=== PATIENT | male | born 1980 | race African-American/Black ===

== ENCOUNTER 2022-12-08 13:03 | Outpatient (CLI) | payer BC, SELFPAY ==
--- NOTE | ~2022-12-08 | XR_ITS ---
EXAMINATION: XR chest 2V 12/08/2022 13:59 INDICATION: History of lymphoma PROCEDURE: 2 view chest COMPARISON: No prior studies for comparison. FINDINGS: The lungs are clear. The cardiomediastinal silhouette is within normal limits. There are no pleural effusions. There is no pneumothorax suspected. IMPRESSION: 1: NO ACUTE CARDIOPULMONARY DISEASE. Reviewed, dictated and finalized at location B.
[2022-12-08 13:54] LABS: Hematocrit 44.2 % (42.0-52.0); Hemoglobin 14.5 g/dL (14.0-18.0); Mean Corpuscular HGB Conc 32.8 g/dl (32-36); Mean Corpuscular Hemoglobin 29.3 pg (26-34); Mean Corpuscular Volume 89.3 fl (80-100); Mean Platelet Volume 9.7 fl (7.4-10.4); Platelet Count Result 286 k/mm3 (150-375); Red Blood Count 4.95 M/mm3 (4.6-6.20); Red Cell Distribution Width 12.8 % (11.5-14.5); White Blood Count 4.4 K/mm3 (4.5-10.0)
[2022-12-08 14:11] LABS: Alanine Aminotransferase 49 U/L (6-50); Albumin Level 4.6 g/dL (3.5-5.1); Alkaline Phosphatase 87 U/L (38-126); Anion Gap 5 mmol/L (8-16); Aspartate Amino Transferase 35 U/L (17-59); Bilirubin,Total 0.7 mg/dL (0.2-1.3); Blood Urea Nitrogen 18 mg/dL (9-20); Calcium 9.6 mg/dL (8.4-10.2); Carbon Dioxide 31 mmol/L (22-30); Chloride 104 mmol/L (98-107); Cholesterol 216 mg/dL (0-200); Estimated Glomerular Filt Rate > 60; Glucose 87 mg/dL (65-110); HDL Direct 51 mg/dL; Potassium 4.4 mmol/L (3.4-5.0); Sodium 140 mmol/L (137-145); Triglycerides 73 mg/dL (<150)
[2022-12-08 14:12] LABS: Hemoglobin A1C 5.6 % (<5.7)
[2022-12-08 14:23] LABS: LDL Cholesterol Direct 140 mg/dL
[2022-12-08 14:32] LABS: Vitamin D 25 Hydroxy < 12.8 ng/mL
[2022-12-08 15:10] LABS: Microalbumin Urine Random 37.2 mg/L (0-16.7)
[2022-12-08 15:13] LABS: Creatinine Urine 287.6 mg/dL; MALB Creatinine Ratio 12.9 mg/g (0-30)
== END 2022-12-08 13:04 | disposition home or self-care (01) ==
PROVIDERS: Clinical Nurse Specialist; Visit Provider Emergency Medicine
DX: C81.90 Hodgkin lymphoma, unspecified, unspecified site (principal)
CPT/HCPCS: 71046; 80053; 80061; 80307; 82043; 82306; 83036; 84439; 84443; 85027

== ENCOUNTER 2023-07-11 14:35 | Outpatient (CLI) | payer OTHER, SELFPAY ==
[2023-07-11 14:49] LABS: Basophils Percent Auto 0.5 % (0.2-1.2); Eosinophils Absolute Auto 0.3 K/mm3 (0-0.3); Eosinophils Percent Auto 6.6 % (0-4.4); Hematocrit 45.1 % (42.0-52.0); Hemoglobin 14.8 g/dL (14.0-18.0); Immature Granulocyte Absolute 0.01 K/mm3 (0.00-0.031); Immature Granulocyte Percent A 0.2 % (0-0.5); Lymphocytes Absolute Auto 2.29 K/mm3 (0.9-3.2); Lymphocytes Percent Auto 52.2 % (18.3-44.2); Mean Corpuscular HGB Conc 32.8 g/dl (32-36); Mean Corpuscular Hemoglobin 29.2 pg (26-34); Mean Platelet Volume 9.4 fl (7.4-10.4); Monocytes Absolute Auto 0.6 K/mm3 (0.1-0.6); Monocytes Percent Auto 12.8 % (2.6-8.5); Neutrophils Absolute Auto 1.2 K/mm3 (1.3-6.7); Neutrophils Percent Auto 27.7 % (45.5-73.1); Platelet Count Result 283 k/mm3 (150-375); Red Blood Count 5.07 M/mm3 (4.6-6.20); Red Cell Distribution Width 13.4 % (11.5-14.5); White Blood Count 4.4 K/mm3 (4.5-10.0)
[2023-07-11 17:09] LABS: Alanine Aminotransferase 45 U/L (6-50); Albumin Level 4.6 g/dL (3.5-5.1); Alkaline Phosphatase 84 U/L (38-126); Anion Gap 8 mmol/L (8-16); Aspartate Amino Transferase 33 U/L (17-59); Bilirubin,Total 0.7 mg/dL (0.2-1.3); Blood Urea Nitrogen 10 mg/dL (9-20); Carbon Dioxide 30 mmol/L (22-30); Chloride 105 mmol/L (98-107); Estimated Glomerular Filt Rate > 60; Glucose 89 mg/dL (65-110); Lactate Dehydrogenase 196 U/L (120-246); Potassium 4.5 mmol/L (3.4-5.0); Sodium 143 mmol/L (137-145)
[2023-07-11 17:38] LABS: Thyroid Stimulating Hormone 0.901 uIU/mL (0.465-4.680)
== END 2023-07-11 14:36 | disposition home or self-care (01) ==
LOC: ANHLAB 14:37
PROVIDERS: Visit Provider Internal Medicine Hematology & Oncology
DX: C81.90 Hodgkin lymphoma, unspecified, unspecified site (principal)
CPT/HCPCS: 36415; 80053; 83615; 84443; 85025

== ENCOUNTER 2023-08-09 14:55 | Outpatient (CLI) | payer OTHER, SELFPAY ==
--- NOTE | ~2023-08-09 | XR_ITS ---
XR chest 2V DATE: 08/09/2023 15:13 INDICATION: Hodgkin's lymphoma TECHNIQUE: PA and lateral views COMPARISON: 12/08/2022 PA and lateral chest FINDINGS: Normal heart size. Mild aortic unfolding. No hilar or mediastinal enlargement is detected. No pulmonary infiltrate or consolidation, pleural effusion or pulmonary vascular congestion or pneumo thorax is detected. IMPRESSION: No active cardiopulmonary disease Reviewed, dictated and finalized at location L. HOLOGY TEACHER
== END 2023-08-09 14:56 | disposition home or self-care (01) ==
LOC: ANHIMG 14:59
PROVIDERS: Visit Provider Internal Medicine Hematology & Oncology
DX: C81.90 Hodgkin lymphoma, unspecified, unspecified site (principal)
CPT/HCPCS: 71046

== ENCOUNTER 2023-11-08 14:15 | Outpatient (CLI) | payer OTHER, SELFPAY ==
[2023-11-08 14:38] LABS: Basophils Percent Auto 0.8 % (0.2-1.2); Eosinophils Absolute Auto 0.5 K/mm3 (0-0.3); Eosinophils Percent Auto 8.8 % (0-4.4); Hematocrit 44.6 % (42.0-52.0); Hemoglobin 14.6 g/dL (14.0-18.0); Immature Granulocyte Absolute 0.01 K/mm3 (0.00-0.031); Immature Granulocyte Percent A 0.2 % (0-0.5); Lymphocytes Absolute Auto 2.06 K/mm3 (0.9-3.2); Lymphocytes Percent Auto 40.5 % (18.3-44.2); Mean Corpuscular HGB Conc 32.7 g/dl (32-36); Mean Corpuscular Hemoglobin 29.3 pg (26-34); Mean Corpuscular Volume 89.6 fl (80-100); Mean Platelet Volume 9.3 fl (7.4-10.4); Monocytes Absolute Auto 0.5 K/mm3 (0.1-0.6); Monocytes Percent Auto 10.4 % (2.6-8.5); Neutrophils Percent Auto 39.3 % (45.5-73.1); Platelet Count Result 305 k/mm3 (150-375); Red Blood Count 4.98 M/mm3 (4.6-6.20); Red Cell Distribution Width 13.2 % (11.5-14.5); White Blood Count 5.1 K/mm3 (4.5-10.0)
[2023-11-08 14:44] LABS: Blood Urea Nitrogen 14 mg/dL (8-26); Carbon Dioxide 31 mmol/L (22-30); Chloride 102 mmol/L (98-109); Estimated Glomerular Filt Rate > 60; Glucose 87 mg/dL (70-105); Ionized Calcium (POC) 1.24 mmol/L (1.11-1.31); Potassium 4.4 mmol/L (3.5-4.9); Sodium 145 mmol/L (138-146)
[2023-11-08 19:50] LABS: Alanine Aminotransferase 44 U/L (6-50); Albumin Level 4.4 g/dL (3.5-5.1); Alkaline Phosphatase 81 U/L (38-126); Anion Gap 5 mmol/L (4-12); Aspartate Amino Transferase 29 U/L (17-59); Bilirubin,Total 0.5 mg/dL (0.2-1.3); Blood Urea Nitrogen 15 mg/dL (9-20); Calcium 9.9 mg/dL (8.4-10.2); Carbon Dioxide 31 mmol/L (22-30); Chloride 106 mmol/L (98-107); Estimated Glomerular Filt Rate > 60; Glucose 86 mg/dL (65-110); Lactate Dehydrogenase 175 U/L (120-246); Potassium 4.5 mmol/L (3.4-5.0); Sodium 142 mmol/L (137-145)
== END 2023-11-08 14:16 | disposition home or self-care (01) ==
PROVIDERS: Visit Provider Internal Medicine Hematology & Oncology
DX: C81.90 Hodgkin lymphoma, unspecified, unspecified site (principal)
CPT/HCPCS: 36415; 80047; 80053; 83615; 85025

== ENCOUNTER 2023-12-12 10:02 | Outpatient (CLI) | payer OTHER, SELFPAY ==
--- NOTE | ~2023-12-12 | XR_ITS ---
Lumbosacral Spine: AP and lateral views Clinical History: Pain Findings: The normal lordotic curve is maintained. The vertebral bodies and posterior elements are i ntact. The intervertebral disc spaces are preserved. The sacroiliac joints are normally outlined. Impression: No significant abnormality. Reviewed, dictated and finalized at [facility]. Impression: No significant abnormality.
--- NOTE | ~2023-12-12 | XR_ITS ---
Thoracic spine: Clinical Indication: Back pain AP and lateral views were performed. No fracture is seen. There is normal alignment of the vertebrae. There are mild degenerative changes in the thoracic spine. Paravertebral soft tissues appear normal. Impression: Mild degenerative disc changes throughout the thoracic spine. Reviewed, dictated and finalized at location . Impression: Mild degenerative disc changes throughout the thoracic spine.
[2023-12-12 11:30] LABS: Hematocrit 47.8 % (42.0-52.0); Hemoglobin 15.5 g/dL (14.0-18.0); Mean Corpuscular HGB Conc 32.4 g/dl (32-36); Mean Corpuscular Hemoglobin 29.1 pg (26-34); Mean Corpuscular Volume 89.7 fl (80-100); Mean Platelet Volume 9.7 fl (7.4-10.4); Platelet Count Result 280 k/mm3 (150-375); Red Blood Count 5.33 M/mm3 (4.6-6.20); Red Cell Distribution Width 12.9 % (11.5-14.5); White Blood Count 3.9 K/mm3 (4.5-10.0)
[2023-12-12 11:42] LABS: Appearance Urine Clear (Clear); Bacteria Urine None Seen /hpf; Bilirubin Urine Negative (Negative); Blood Urine Negative (Negative); Color Urine Yellow (Yellow); Glucose Urine UA Negative (Negative); Ketones Urine Negative (Negative); Leukocyte Esterase Ur Negative LEU/UL (Negative); Nitrate Urine Negative (Negative); Non Pathogenic Casts 0-2; Protein Urine Trace mg/dL (Negative); RBC Urine 0-2 /hpf (0-2); Specific Grav Ur 1.021 (1.001-1.035); Squamous Epithelial Cell Urine None Seen /hpf (Few); WBC Urine 0-5 /hpf (0-3)
[2023-12-12 11:48] LABS: Add Urine Microscopic? YES
[2023-12-12 11:48] LABS: Alanine Aminotransferase 43 U/L (6-50); Albumin Level 4.5 g/dL (3.5-5.1); Alkaline Phosphatase 82 U/L (38-126); Anion Gap 5 mmol/L (4-12); Aspartate Amino Transferase 35 U/L (17-59); Bilirubin,Total 0.6 mg/dL (0.2-1.3); Blood Urea Nitrogen 17 mg/dL (9-20); Calcium 9.3 mg/dL (8.4-10.2); Carbon Dioxide 32 mmol/L (22-30); Chloride 104 mmol/L (98-107); Cholesterol 227 mg/dL (0-200); Estimated Glomerular Filt Rate > 60; Glucose 93 mg/dL (65-110); HDL Direct 46 mg/dL; Potassium 4.2 mmol/L (3.4-5.0); Sodium 141 mmol/L (137-145); Triglycerides 58 mg/dL (<150)
[2023-12-12 11:59] LABS: LDL Cholesterol Direct 155 mg/dL
[2023-12-12 12:17] LABS: Creatinine Urine 144.9 mg/dL
[2023-12-12 12:18] LABS: Prostate Specific Antigen 0.4 ng/mL (< OR = 4.0)
[2023-12-12 12:22] LABS: MALB Creatinine Ratio 51.2 mg/g (0-30); Microalbumin Urine Random 74.2 mg/L (0-16.7)
[2023-12-12 12:27] LABS: Hemoglobin A1C 5.3 % (<5.7)
== END 2023-12-12 10:03 | disposition home or self-care (01) ==
LOC: ANHIMG 10:03
PROVIDERS: Emergency Medicine; Visit Provider Family Medicine
DX: Z00.00 Encounter for general adult medical examination without abnormal findings (principal); M47.894 Other spondylosis, thoracic region
CPT/HCPCS: 36415; 72072; 72100; 80053; 80061; 81001; 82043; 82306; 83036; 84153; 84439; 84443; 85027

== ENCOUNTER 2024-06-11 14:07 | Outpatient (CLI) | payer OTHER, SELFPAY ==
[2024-06-11 15:11] LABS: Creatinine Urine 274.1 mg/dL
[2024-06-11 15:14] LABS: MALB Creatinine Ratio 4.2 mg/g (0-30); Microalbumin Urine Random 11.5 mg/L (0-16.7)
== END 2024-06-11 14:08 | disposition home or self-care (01) ==
LOC: ANHLAB 14:09
PROVIDERS: Visit Provider Emergency Medicine
DX: R79.89 Other specified abnormal findings of blood chemistry (principal)
CPT/HCPCS: 82043

== ENCOUNTER 2024-08-20 13:55 | Outpatient (CLI) | payer OTHER, SELFPAY ==
[2024-08-20 14:51] LABS: Cholesterol 227 mg/dL (0-200); HDL Direct 44 mg/dL; Triglycerides 61 mg/dL (<150)
[2024-08-20 15:02] LABS: LDL Cholesterol Direct 150 mg/dL
--- OUTSIDE RECORDS SUMMARY | 2024-08-22 01:35 | XMS_ITS | Clinical Summary ---
Author Organization [facility] Address [address] [place] [address] Care Team Providers Care Elevator Repairer Helper Name Role Phone Vanessa Reyes MD Primary Care Provider [phone] Allergies Active Allergy Reactions Criticality Noted Date Comments Morphine Hypotension High 08/21/2021 Medications amLODIPine (NORVASC) 10 mg tablet Take 1 tablet (10 mg total) by mouth daily 30 tablet 11 02/15/2021 Active lisinopriL (PRINIVIL,ZESTR IL) 10 mg tablet Take 1 tablet (10 mg total) by mouth daily 30 tablet 11 02/15/2021 Active omeprazole (PriLOSEC) 40 mg capsule Take 1 capsule (40 mg total) by mouth daily for 14 days 14 capsule 12/19/2021 Active dicyclomine (BENTYL) 20 mg tablet Take 1 tablet (20 mg total) by mouth 2 (two) times a day for 10 days 20 tablet 12/22/2023 Active Active Problems Problem Noted Date Diagnosed Date Infectious colitis 08/20/2021 Hypertensive urgency 02/13/2021 Epistaxis 02/13/2021 LV hypertrophy, hypertensive 02/13/2021 Acute kidney injury 02/13/2021 Severe obesity (BMI 35.0-39.9) with comorbidity 02/13/2021 History of Hodgkin's lymphoma 02/13/2021 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 Surgical History Surgery Date Site/Laterality Comments MYRINGOTOMY W/ TUBES Myringotomy - (Added by JOSE Conv) SINUS SURGERY Sinus Surgery - (Added by JOSE Conv) Medical History Medical History Date Comments History of Hodgkin's lymphoma Hi story of Hodgkin's lymphoma - (Added by JOSE Conv) Personal history of other di seases of the circulatory system History of hypertension - (A dded by JOSE Johnson) Hypertension Social History Tobacco Use Types Packs/Day Years Used Date Smoking Tobacco: Never Alcohol Use Standard Drinks/Week Comments Not Currently 0 (1 standard drink = 0.6 oz pur e alcohol) AUDIT-C Answer Date Recorded Q1: How often do you have a drink containing alc ohol? Never 02/13/2021 Average Number of Drinks Not on file 021 Frequency of Binge Drinking Not on file 01/27 Personal Safety Answer Date Recorded Have you ever been in or are you currently in a harmful physical or emotional relationship or is someone making you feel afraid or unsafe? 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 Gender Identity Not on file Sexual Orientation Not on file Obstetrics History Last Filed Vital Signs Vital Sign Reading Time Taken Comments Blood Pressure 151/85 12/22/2023 12:45 PM CDT Pulse 60 12/22/2023 12:50 PM CDT Temperature 36.4 ??C (97.6 ??F) 12/22/2023 11:36 AM C DT Respiratory Rate 17 12/22/2023 12:50 PM CDT Oxygen Saturation 100% 12/22/2023 12:50 PM CDT Inhaled Oxygen Concentration - - Weight 109 kg (240 lb 4.8 oz) 12/22/2023 11:36 A M CDT Height 172.7 cm (5' 8 ) 12/22/2023 11:36 AM CDT Body Mass Index 36.54 12/22/2023 11:36 AM CDT Plan of Treatment Health Maintenance Due Date Last Done Comments Depression Screening 1980 Hepatitis C Screening 1980 Prostate Cancer Screening-PSA 1980 Pneumococcal vaccine <65 (1 of 2 - PCV) 1986 Varicella Vaccines (1 of 2 - 13+ 2-dose series) 1993 Hepatitis B Screening 1998 Regular Well Visit/Exam 18-64 1998 Zoster Vaccine (1 of 2) 1999 Influenza Vaccine (#1) 2024 05/21/2015 DTaP/Tdap/Td Vaccine (2 - Td or Tdap) 05/21/2025 05/21/2015 HPV Vaccines Aged Out No longer eligi ble based on patient's age to complete this topic Insurance [facility] PLAN [facility] Advance Directives For more information, please contact: [phone] * Full Code (Latest Code Status on File) Date Activated Date Inactivated Comments 08/21/2021 12:43 AM 08/22/2021 6:25 PM * Full Code Date Activated Date Inactivated Comments 02/13/2021 5:57 AM 02/14/2021 5:34 PM Care Teams Elevator Repairer Helper Relationship Specialty Start Date End Date Vanessa Reyes MD [address] [place] [id number] PCP - General Internal Medicine 03/13/19
--- OUTSIDE RECORDS SUMMARY | 2024-08-22 01:35 | XMS_ITS | CONTINUITY OF CARE DOCUMENT ---
Author Name carolandie carolandie Address Unknown Organization [facility] Address [address] [place] [address] Phone [phone] Care Team Providers Care Pulmonary Disease Specialist Name Role Phone Mary Keene MD Unavailable [phone] ROBERT ROJAS MD Unavailable [phone] ROBERT ROJAS MD Unavailable [phone] PROBLEMS Condition Status Date Provider Notes Cardiology examination active Mary bird MD Abnormal EKG active Mary Keene MD Hx of Hodgkin's lymphoma active Mary mccain MD HTN essential active Mary Keene MD ENCOUNTERS Date Type Provider Location Encounter Diag nosis - In-person encounter Office Visit Mary Keene MD [facility] Cardiology examination - In-person encounter Office Visit Mary Keene MD [facility] - In-person encounter Office Visit Mary Keene MD [facility] - In-person encounter Office Visit Mary Keene MD [facility] Office - In-person encounter Office Visit Mary Keene MD [facility] HTN essentialHx of Hodgkin's lymphomaAbnormal EKG VITAL SIGNS Date Observation Value Provider Body Mass Index (Ratio) 38.31 kg/m2 Mayco Keene MD blood pressure, diastolic 82 mm[Hg] Jad carcamo Levy blood pressure, systolic 132 mm[Hg] Waleska rodriguez Levy oxygen saturation, oximetry 99 % [facility] blood pressure, cuff size regular Jad carcamo Levy pulse rate 66 /min [facility] Levy weight E&M 252.0 [lb_av] [facility] height E&M 68 [in_i] [facility] Levy Body Mass Index (Ratio) 36.49 kg/m2 Mayco Keene MD blood pressure, diastolic 84 mm[Hg] Li blood pressure, systolic 150 mm[Hg] Aretha blood pressure, cuff size large Ja rret blood pressure, diastolic 84 mm[Hg] Ja rret blood pressure, systolic 150 mm[Hg] Jar ret pulse rate 72 /min Marcos y respiratory rate E&M 12 /min Marcos oxygen saturation, oximetry 96 % Marcos weight E&M 240 [lb_av] Marcos y height E&M 68 [in_i] Marcos y Body Mass Index (Ratio) 36.34 kg/m2 Félix Jade blood pressure, diastolic 102 mm[Hg] Li nkLogic blood pressure, systolic 141 mm[Hg] Aretha pulse rate 76 /min Marcos y blood pressure, cuff size large Ja rret blood pressure, diastolic 102 mm[Hg] Ja rret blood pressure, systolic 141 mm[Hg] Jar ret respiratory rate E&M 12 /min Marcos oxygen saturation, oximetry 100 % Marcos weight E&M 239 [lb_av] Marcos y height E&M 68 [in_i] Marcos y Body Mass Index (Ratio) 37.25 kg/m2 Mayco Keene MD blood pressure, diastolic 91 mm[Hg] Li nkLog blood pressure, systolic 135 mm[Hg] Aretha kLog weight E&M 245 [lb_av] Marilin Justice height E&M 68 [in_i] Marilin Justice respiratory rate E&M 18 /min Marilin Justice blood pressure, diastolic 91 mm[Hg] shelli Justice blood pressure, systolic 135 mm[Hg] She arnaldo Justiec pulse rate 69 /min Marilin Justice oxygen saturation, oximetry 99 % Marilin Justice blood pressure, cuff size regular shelli Justice Body Mass Index (Ratio) 36.03 kg/m2 Mayco Keene MD height E&M 68 [in_i] Mariana Dougherty respiratory rate E&M 16 /min Mariana ellison blood pressure, diastolic 92 mm[Hg] Elvia Dougherty blood pressure, systolic 153 mm[Hg] Shagufta Dougherty pulse rate 81 /min Mariana Dougherty oxygen saturation, oximetry 98 % Mariana Dougherty weight E&M 237 [lb_av] Mariana Dougherty blood pressure, cuff size large An magaly Dougherty ALLERGIES No Known Drug Allergies HISTORY OF MEDICATION USE Medication Status Instructions Dates Provider Indications Com ments lisinopril 10 mg tablet active Mariana Dougherty amlodipine 10 mg tablet active Mariana Dougherty SOCIAL HISTORY Date Observation Value Provider drug use no Mary Keene MD alcohol use no Mary Keene MD smoking status Never smoker Mary bird MD social history reviewed E&M revi ewed - no changes required Mary Keene MD social history E&M Smoking Histo ry: Reena heard has never smoked. Mary Keene MD drug use no Adilene Ventimig michelle LOST CHARGE CARD CLERK alcohol use no Adilene Ventimig michelle LOST CHARGE CARD CLERK smoking status Never smoker Adilene Ventim iglia LOST CHARGE CARD CLERK smoking status Never smoker Marilin Justice social history E&M S moking History: Reena heard has never smoked. Mary Keene MD social history reviewed E&M revi ewed - no changes required Kristy Young number of grandchildren Mary Keene MD social history E&M S moking History: Reena heard has never smoked. Mary Keene MD social history reviewed E&M revi ewed - no changes required Mary Keene MD smoking status Never smoker Mariana Dougherty INSURANCE PROVIDERS Payer name Policy type / Coverage type [facility] libertarian [place] MEDICAID (2) Medicaid [id number] ADVANCE DIRECTIVES Name Date DISCUSSED - NO DECISION MADE TREATMENT PLAN Date Name Performer [id number],C,EKG today in SR Mary Keene MD [id number],C,B P today 150/84. He has been monitoring at home and says it is lower when he does not take his amlodipine and lisinopril. States he misses occasional doses. Advised to take medications consistently and monitor BP everyday. His updated medication list for this problem includes: Lisinopril 10 Mg Tablet (Lisinopril) Amlodipine 10 Mg Tablet (Amlodipine) Mary Keene MD [id number],S, H is updated medication list for this problem includes: Lisinopril 10 Mg Tablet (Lisinopril) Amlodipine 10 Mg Tablet (Amlodipine) Adilene Blanchard [facility] [id number],C,B lood pressure 141/102 today D BP has been elevated each visit p atient admits to medication non-compliance we discussed risk of not taking meds as directed which include but are not limited to stroke, NC and renal failure. Patient voiced understanding W ill take meds as preescribed and monitor BP at home. Will return in 3 mos or sooner if needed. H is updated medication list for this problem includes: Lisinopril 10 Mg Tablet (Lisinopril) Amlodipine 10 Mg Tablet (Amlodipine) Adilene Blanchard [facility] [id number],C, E KG today shows sinus rhythm with nonspecific ST-T changes and possible slurring of the R-wave. He would certainly benefit from an echo. Mary Keene MD [id number],C, B P elevated today. Continues on amlodipine and lisinopril. States it's usually lower when he checks outside the office. ADvised dietary sodium restriction and routine home monitoring. He would certainly benefit from an echocardiogram to evaluate his LVF and wall motion and to evaluate for any hypertensive changes. Mary Keene MD Cardiology:Bp is wel l controlled. continue current meds. H is updated medication list for this problem includes: Lisinopril 10 Mg Tablet (Lisinopril) Amlodipine 10 Mg Tablet (Amlodipine) Mary Keene MD Cardiology:Bp is wel l controlled. continue current meds. Mary Keene MD Cardiology: E KG today in SR Mary Keene MD Cardiology:EKG today in SR Ashok Keene MD Cardiology:BP today 150/84. He has been monitoring at home and says it is lower when he does not take his amlodipine and lisinopril. States he misses occasional doses. Advised to take medications consistently and monitor BP everyday. His updated medication list for this problem includes: Lisinopril 10 Mg Tablet (Lisinopril) Amlodipine 10 Mg Tablet (Amlodipine) Mary Keene MD Cardiology: H is updated medication list for this problem includes: Lisinopril 10 Mg Tablet (Lisinopril) Amlodipine 10 Mg Tablet (Amlodipine) Adilene Blanchard [facility] Cardiology:Blood pre ssure 141/102 today D BP has been elevated each visit p atient admits to medication non-compliance we discussed risk of not taking meds as directed which include but are not limited to stroke, NC and renal failure. Patient voiced understanding W ill take meds as preescribed and monitor BP at home. Will return in 3 mos or sooner if needed. H is updated medication list for this problem includes: Lisinopril 10 Mg Tablet (Lisinopril) Amlodipine 10 Mg Tablet (Amlodipine) Adilenealvarado Haganmassimoemma [facility] Cardiology: E KG today shows sinus rhythm with nonspecific ST-T changes and possible slurring of the R-wave. He would certainly benefit from an echo. Mary Keene MD Cardiology: B P elevated today. Continues on amlodipine and lisinopril. States it's usually lower when he checks outside the office. ADvised dietary sodium restriction and routine home monitoring. He would certainly benefit from an echocardiogram to evaluate his LVF and wall motion and to evaluate for any hypertensive changes. Mary Keene MD Date Name Complete Echo HISTORY OF PROCEDURES Procedure Date Procedure Name Provider Procedure Notes S tatus Complex e/m visit add on Mary Keene MD completed EKG Mary Keene MD complet ed EKG Mary Keene MD complet ed EKG Mary Keene MD complet ed EKG Mary Keene MD complet ed
--- OUTSIDE RECORDS SUMMARY | 2024-08-22 01:35 | XMS_ITS | Clinical Summary ---
Author Organization [facility] Address [address] [place] [address] Care Team Providers Care Marine Steward Name Role Phone Darwin Mata MD Primary Care Provider [phone] Allergies Active Allergy Reactions Criticality Noted Date Comments Morphine Hypotension High 08/21/2021 Medications amLODIPine (NORVASC) 10 mg tablet Take 10 mg by mouth daily. 02/15/2021 Active lisinopriL (PRINIVIL) 10 mg tablet Take 10 mg by mouth daily. 02/15/2021 Active Active Problems No known active problems Encounters Date Type Department Care Team Description 08/20/2024 External Device Data ST[facility] ABSTRACTION Provider, Abstract from Last 3 Months Family History Medical History Relation Name Comments No Known Problems Brother 1 No Known Problems Brother 2 No Known Problems Brother 3 No Known Problems Father No Known Problems Mother No Known Problems Sister No Known Problems Son 1 No Known Problems Son 2 Relation Name Status Comments Brother 1 Alive Brother 2 Alive Brother 3 Alive Father Alive Mother Sister Alive Son 1 Alive Son 2 Alive Social History Tobacco Use Types Packs/Day Years Used Date Smoking Tobacco: Never Smokeless Tobacco: Never Alcohol Use Standard Drinks/Week Comments Never 0 (1 standard drink = 0.6 oz pur e alcohol) Sex and Gender Information Value Date Recorded Sex Assigned at Not on file Legal Sex Male 12:17 PM CDT Gender Identity Not on file Sexual Orientation Not on file Last Filed Vital Signs Vital Sign Reading Time Taken Comments Blood Pressure 138/88 11/08/2023 2:41 PM CDT Pulse 77 08/09/2023 2:11 PM ENERGY ATTORNEY Temperature 36.1 ??C (97 ??F) 11/08/2023 2:41 PM CDT Respiratory Rate 14 11/08/2023 2:41 PM CDT Oxygen Saturation 97% 08/09/2023 2:11 PM ENERGY ATTORNEY Inhaled Oxygen Concentration - - Weight 109.8 kg (242 lb) 11/08/2023 2:41 PM CDT Height 172.7 cm (5' 8 ) 07/11/2023 1:48 PM ENERGY ATTORNEY Body Mass Index 36.8 07/11/2023 1:48 PM ENERGY ATTORNEY Plan of Treatment Upcoming Encounters Date Type Department Care Team (Late st Contact Info) Description 11/12/2024 2:15 PM CDT Office Visit [facility] Oncology and Hematology - [place] [address] [facility] [address] [place] [address] Laith Cavazos MD [address] [place] [address] Health Maintenance Due Date Last Done Comments Pre-Diabetes and Diabetes Screening 1980 PNEUMOCOCCAL VACCINE 0-64 YE ARS (1 of 2 - PCV) 1986 DTAP/TDAP/TD VACCINES (1 - Tdap) 1999 HEPATITIS B VACCINES (1 of 3 - 19+ 3-dose series) 1999 INFLUENZA VACCINE (#1) 2024 HPV VACCINES Aged Out No longer eligi ble based on patient's age to complete this topic Insurance [facility] MEDICAID Care Teams Marine Steward Relationship Specialty Start Date End Date Darwin Mata MD [address] [place] [id number] PCP - General Family Practice 07/11/23
--- OUTSIDE RECORDS SUMMARY | 2024-08-22 01:35 | XMS_ITS | Referral Summary ---
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 Gender Identity Not on file Sexual Orientation [...] 12/22/2023 11:36 AM CDT Plan of Treatment Not on file Insurance [facility] PLAN [facility] Advance Directives For more information, please contact: [phone] * Full Code (Latest Code Status on File) Date Activated Date Inactivated Comments 08/21/2021 12:43 AM 08/22/2021 6:25 PM * Full Code Date Activated Date Inactivated Comments 02/13/2021 5:57 AM 02/14/2021 5:34 PM Care Teams Market Risk Analyst Relationship Specialty Start Date End Date Vanessa Reyes MD [address] [facility] [address] [place] [address] PCP - General Internal Medicine 03/13/19
[2024-08-22 02:54] LABS: Protein, Total 7.9 g/dL (6.1-8.1)
== END 2024-08-20 13:56 | disposition home or self-care (01) ==
LOC: ANHLAB 13:56
PROVIDERS: Visit Provider Emergency Medicine
DX: E78.5 Hyperlipidemia, unspecified (principal)
CPT/HCPCS: 36415; 80061; 84155; 84165

== ENCOUNTER 2024-11-07 09:40 | Outpatient (CLI) | payer OTHER, SELFPAY ==
--- OUTSIDE RECORDS SUMMARY | 2024-11-07 10:09 | XMS_ITS | Referral Summary ---
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 Gender Identity Not on file Sexual Orientation Not on file Last Filed Vital Signs Vital Sign Reading Time Taken Comments Blood Pressure 151/85 12/22/2023 12:45 PM CDT Pulse 60 12/22/2023 12:50 PM CDT Temperature 36.4 C (97.6 F) 12/22/2023 11:36 AM CDT Respiratory Rate 17 12/22/2023 12:50 PM CDT Oxygen Saturation 100% 12/22/2023 12:50 PM CDT Inhaled Oxygen Concentration - - Weight 109 kg (240 lb 4.8 oz) 12/22/2023 11:36 A M CDT Height 172.7 cm (5' 8 ) 12/22/2023 11:36 AM CDT Body Mass Index 36.54 12/22/2023 11:36 AM CDT Plan of Treatment Not on file Insurance [facility] PLAN [facility] Advance Directives For more information, please contact: [phone] * Full Code (Latest Code Status on File) Date Activated Date Inactivated Comments 08/21/2021 12:43 AM 08/22/2021 6:25 PM * Full Code Date Activated Date Inactivated Comments 02/13/2021 5:57 AM 02/14/2021 5:34 PM Care Teams Dance Professor Relationship Specialty Start Date End Date Vanessa Reyes MD [address] [place] [address] PCP - General Internal Medicine 03/13/19
--- OUTSIDE RECORDS SUMMARY | 2024-11-07 10:09 | XMS_ITS | CONTINUITY OF CARE DOCUMENT ---
Author Name carolandie carolandie Address Unknown Organization [facility] Address [address] [place] [address] Phone [phone] Care Team Providers Care Chocolate Finisher Name Role Phone Mary Keene MD Unavailable ROBERT ROJAS MD Unavailable [phone] ROBERT ROJAS MD Unavailable [phone] PROBLEMS Condition Status Date Provider Notes HTN essential active Mary Keene MD Hx of Hodgkin's lymphoma active Mary mccain MD Abnormal EKG active Mary Keene MD Cardiology examination active Mary bird MD ENCOUNTERS Date Type Provider Location Encounter Diag nosis - In-person encounter Office Visit Mary Keene MD [place] [facility] Cardiology examination - In-person encounter Office Visit Mary Keene MD [place] [facility] - In-person encounter Office Visit Mary Keene MD [place] [facility] - In-person encounter Office Visit Mary Keene MD [facility] Office - In-person encounter Office Visit Mary Keene MD [place] [facility] HTN essentialHx of Hodgkin's lymphomaAbnormal EKG VITAL SIGNS Date Observation Value Provider Body Mass Index (Ratio) 38.31 kg/m2 Mayco Keene MD blood pressure, diastolic 82 mm[Hg] Jad carcamo Levy blood pressure, systolic 132 mm[Hg] Waleska rodriguez Levy oxygen saturation, oximetry 99 % [facility] blood pressure, cuff size regular Jad carcamo Levy pulse rate 66 /min [facility] Levy weight E&M 252.0 [lb_av] [facility] height E&M 68 [in_i] [facility] Levy Body Mass Index (Ratio) 36.49 kg/m2 [...] blood pressure, systolic 135 mm[Hg] She arnaldo Justice pulse rate 69 /min Marilin Justice oxygen [...] MD drug use no Adilene Ventimig michelle BOWLING ALLEY ATTENDANT alcohol use no Adilene Ventimig michelle BOWLING ALLEY ATTENDANT smoking status Never smoker Adilene Ventim iglia BOWLING ALLEY ATTENDANT smoking status Never smoker Marilin Justice social [...] Payer name Policy type / Coverage type [facility] libertarian ID [place] MEDICAID (2) Medicaid [id number] ADVANCE DIRECTIVES Name Date DISCUSSED - NO DECISION MADE TREATMENT PLAN Date Name Performer [id number],C,EKG today in SR Mary Keene MD [id number],C,B P today 150/84. He has been monitoring at home and says it is lower when he does not take his amlodipine and lisinopril. States he misses occasional doses. Advised to take medications consistently and monitor BP everyday. His updated medication list for this problem includes: Lisinopril 10 Mg Tablet (Lisinopril) Amlodipine 10 Mg Tablet (Amlodipine) Mary Keene MD [id number],S, H is updated medication list for this problem includes: Lisinopril 10 Mg Tablet (Lisinopril) Amlodipine 10 Mg Tablet (Amlodipine) Adilene Blanchard [facility] [id number],C,B lood pressure 141/102 today D BP has been elevated each visit p atient admits to medication non-compliance we discussed risk of not taking meds as directed which include but are not limited to stroke, [place] and renal failure. Patient voiced understanding W ill take meds as preescribed and monitor BP at home. Will return in 3 mos or sooner if needed. H is updated medication list for this problem includes: Lisinopril 10 Mg Tablet (Lisinopril) Amlodipine 10 Mg Tablet (Amlodipine) Adilene Blanchard [facility] [id number],C, E KG today shows sinus rhythm with nonspecific ST-T changes and possible slurring of the R-wave. He would certainly benefit from an echo. Mary Keene MD [id number],C, B P elevated today. Continues on amlodipine [...] Amlodipine 10 Mg Tablet (Amlodipine) Adilene Blanchard [facility] Cardiology:Blood pre ssure 141/102 today D BP has been elevated each visit p atient admits to medication non-compliance we discussed risk of not taking meds as directed which include but are not limited to stroke, [place] and renal failure. Patient voiced understanding W ill take meds as preescribed and monitor BP at home. Will return in 3 mos or sooner if needed. H is updated medication list for this problem includes: Lisinopril 10 Mg Tablet (Lisinopril) Amlodipine 10 Mg Tablet (Amlodipine) Adilenealvarado [facility]imoemma [facility] Cardiology: E KG today shows sinus rhythm [...]
--- OUTSIDE RECORDS SUMMARY | 2024-11-07 10:09 | XMS_ITS | Clinical Summary ---
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 Gender Identity Not on file Sexual Orientation [...] C Screening 1980 Prostate Cancer Screening-PSA 1980 Varicella Vaccines (1 of 2 - 13+ 2-dose series) 1993 Hepatitis B Screening 1998 Regular Well Visit/Exam 18-64 1998 Pneumococcal vaccine <65 (1 of 2 - PCV) 1999 Zoster Vaccine (1 of 2) 1999 Influenza Vaccine (#1) 2024 05/21/2015 DTaP/Tdap/Td Vaccine (2 - Td or Tdap) 05/21/2025 05/21/2015 HPV Vaccines Aged Out No longer eligi ble based on patient's age to complete this topic Insurance [facility] Advance Directives For more information, please contact: [phone] * Full Code (Latest Code Status on File) Date Activated Date Inactivated Comments 08/21/2021 12:43 AM 08/22/2021 6:25 PM * Full Code Date Activated Date Inactivated Comments 02/13/2021 5:57 AM 02/14/2021 5:34 PM Care Teams Seam Closer Relationship Specialty Start Date End Date Vanessa Reyes MD [address] [place] [id number] PCP - General Internal Medicine 03/13/19
--- OUTSIDE RECORDS SUMMARY | 2024-11-07 10:09 | XMS_ITS | Clinical Summary ---
Author Organization [facility] Address [address] [place] [address] Care Team Providers Care Interventional Sale Consultant Name Role Phone Darwin Mata MD Primary Care Provider [phone] Allergies Active Allergy Reactions Criticality Noted Date Comments Morphine Hypotension High 08/21/2021 Medications amLODIPine (NORVASC) 10 mg tablet Take 10 mg by mouth daily. 02/15/2021 Active lisinopriL (PRINIVIL) 10 mg tablet Take 10 mg by mouth daily. 02/15/2021 Active Active Problems No known active problems Encounters Date Type Department Care Team Description 09/23/2024 External Device Data [facility]STRACTION Provider, Abstract 09/02/2024 External Device Data [facility] Provider, Abstract 08/20/2024 External Device Data [facility] Provider, Abstract 08/20/2024 External Device Data [facility]STRACTION Provider, [...] PM CDT Pulse 77 08/09/2023 2:11 PM EXPELLER OPERATOR Temperature 36.1 C (97 F) 11/08/2023 2:41 PM CDT Respiratory Rate 14 11/08/2023 2:41 PM CDT Oxygen Saturation 97% 08/09/2023 2:11 PM EXPELLER OPERATOR Inhaled Oxygen Concentration - - Weight 109.8 kg (242 lb) 11/08/2023 2:41 PM CDT Height 172.7 cm (5' 8 ) 07/11/2023 1:48 PM EXPELLER OPERATOR Body Mass Index 36.8 07/11/2023 1:48 PM EXPELLER OPERATOR Plan of Treatment Upcoming Encounters Date Type Department Care Team (Late st Contact Info) Description 11/12/2024 2:15 PM CDT Office Visit [facility] - [place] [address] [facility] [address] [place] [address] Laith Cavazos MD [address] [facility] [address] [place] [address] Health Maintenance Due Date Last Done Comments Pre-Diabetes and Diabetes Screening 1980 DTAP/TDAP/TD VACCINES (1 - Tdap) 1999 HEPATITIS B VACCINES (1 of 3 - 19+ 3-dose series) 1999 Preventative Visit-Managed Medicaid 1999 INFLUENZA VACCINE (#1) 2024 HPV VACCINES Aged Out No longer eligi ble based on patient's age to complete this topic Insurance [facility] MEDICAID Care Teams Interventional Sale Consultant Relationship Specialty Start Date End Date Darwin Mata MD [address] [place] [phone] PCP - General Family Practice 07/11/23
[2024-11-07 10:28] LABS: Basophils Percent Auto 0.8 % (0.2-1.2); Eosinophils Absolute Auto 0.3 K/mm3 (0-0.3); Eosinophils Percent Auto 7.2 % (0-4.4); Hemoglobin 13.9 g/dL (14.0-18.0); Immature Granulocyte Absolute 0.01 K/mm3 (0.00-0.031); Immature Granulocyte Percent A 0.3 % (0-0.5); Lymphocytes Absolute Auto 2.06 K/mm3 (0.9-3.2); Lymphocytes Percent Auto 52.8 % (18.3-44.2); Mean Corpuscular HGB Conc 32.3 g/dl (32-36); Mean Corpuscular Hemoglobin 29.3 pg (26-34); Mean Corpuscular Volume 90.7 fl (80-100); Mean Platelet Volume 9.8 fl (7.4-10.4); Monocytes Absolute Auto 0.5 K/mm3 (0.1-0.6); Monocytes Percent Auto 12.1 % (2.6-8.5); Neutrophils Absolute Auto 1.1 K/mm3 (1.3-6.7); Neutrophils Percent Auto 26.8 % (45.5-73.1); Platelet Count Result 271 k/mm3 (150-375); Red Blood Count 4.74 M/mm3 (4.6-6.20); Red Cell Distribution Width 12.9 % (11.5-14.5); White Blood Count 3.9 K/mm3 (4.5-10.0)
[2024-11-07 10:58] LABS: Alanine Aminotransferase 40 U/L (6-50); Albumin Level 4.2 g/dL (3.5-5.1); Alkaline Phosphatase 82 U/L (38-126); Anion Gap 7 mmol/L (4-12); Aspartate Amino Transferase 31 U/L (17-59); Bilirubin,Total 0.6 mg/dL (0.2-1.3); Blood Urea Nitrogen 14 mg/dL (9-20); Calcium 9.4 mg/dL (8.4-10.2); Carbon Dioxide 30 mmol/L (22-30); Chloride 105 mmol/L (98-107); Estimated Glomerular Filt Rate > 60; Glucose 90 mg/dL (65-110); Lactate Dehydrogenase 169 U/L (120-246); Sodium 142 mmol/L (137-145)
== END 2024-11-07 09:41 | disposition home or self-care (01) ==
PROVIDERS: Visit Provider Internal Medicine Hematology & Oncology
DX: C81.90 Hodgkin lymphoma, unspecified, unspecified site (principal)
CPT/HCPCS: 36415; 80053; 83615; 85025

== ENCOUNTER 2024-11-14 11:28 | Outpatient (CLI) | payer OTHER, SELFPAY ==
--- OUTSIDE RECORDS SUMMARY | 2024-11-14 11:33 | XMS_ITS | Encounter Summary ---
Author Organization [facility] [employer] [facility] Address [address] [place] [address] Care Team Providers Care Strategy Intern Name Role Phone Darwin Mata MD Primary Care Provider [phone] Encounter Details Date Type Department Care Team ([facility] Contact Info) Description 11/13/2024 Abstract [facility] Oncology and Hematology [place] [address] [place] [address] Laith Cavazos MD [address] [place], [place] [email or web address] [address] [place] [address] Social History Tobacco Use Types Packs/Day Years Used Date Smoking Tobacco: Never Smokeless Tobacco: Never Alcohol Use Standard Drinks/Week Comments Never 0 (1 standard drink = 0.6 oz pur e alcohol) Sex and Gender Information Value Date Recorded Sex Assigned at Not on file Legal Sex Male 12:17 PM CDT Gender Identity Not on file Sexual Orientation Not on file documented as of this encounter Plan of Treatment Upcoming Encounters Date Type Department Care Team (Late Contact Info) Description 12/03/2024 4:30 PM CDT Telephone Check Up [facility] Oncology [facility] Hematology [place] [address] [place] [address] Laith Cavazos MD [facility] [employer] [address] [place] [address] documented as of this encounter Visit Diagnoses Not on filedocumented in this encounter Care Teams Strategy Intern Relationship Specialty Start Date End Date Darwin Mata MD [address] [place] [phone] PCP - General Family Practice 07/11/23 documented as of this encounter
--- OUTSIDE RECORDS SUMMARY | 2024-11-14 11:33 | XMS_ITS | Clinical Summary ---
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 Gender Identity Not on file Sexual Orientation [...] patient's age to complete this topic Insurance [facility] PLAN [facility] Advance Directives For more information, please contact: [phone] * Full Code (Latest Code Status on File) Date Activated Date Inactivated Comments 08/21/2021 12:43 AM 08/22/2021 6:25 PM * Full Code Date Activated Date Inactivated Comments 02/13/2021 5:57 AM 02/14/2021 5:34 PM Care Teams Commercial Lines Underwriter Relationship Specialty Start Date End Date Vanessa Reyes MD [address] [place] [id number] PCP - General Internal Medicine 03/13/19
--- OUTSIDE RECORDS SUMMARY | 2024-11-14 11:33 | XMS_ITS | Clinical Summary ---
Author Organization [facility] Ketty genaro [facility] Address [address] [place] [address] Care Team Providers Care Search Manager Name Role Phone Darwin Mata MD Primary Care Provider [phone] Allergies Active Allergy Reactions Criticality Noted Date Comments Morphine Hypotension High 08/21/2021 Medications amLODIPine (NORVASC) 10 mg tablet Take 10 mg by mouth daily. 02/15/2021 Active lisinopriL (PRINIVIL) 10 mg tablet Take 10 mg by mouth daily. 02/15/2021 Active Active Problems No known active problems Encounters Date Type Department Care Team Description 11/13/[address] [facility] Oncology and Hematology [facility] [address] [place] [address] Laith Cavazos MD 11/12/2024 2:15 PM CDT Office Visit [facility] Oncology and Hematology [facility] [address] [place] [id number] Laith Cavazos MD Hodgkin lymphoma, unspecified Hodgkin lymphoma type, unspecified body region (CMS/HCC) (Primary Dx) 11/10/[address] [facility] Oncology and Hematology [facility] [address] [place] [address] Laith Cavazos MD 09/23/2024 External Device Data [facility] ABSTRACTION Provider, [...] Sign Reading Time Taken Comments Blood Pressure 160/88 11/12/2024 1:56 PM CDT man ual Pulse 78 11/12/2024 1:52 PM CDT Temperature 36.9 C (98.5 F) 11/12/2024 1:52 PM CDT Respiratory Rate 14 11/08/2023 2:41 PM CDT Oxygen Saturation 99% 11/12/2024 1:52 PM CDT Inhaled Oxygen Concentration - - Weight 114 kg (251 lb 6.4 oz) 11/12/2024 1:52 PM CDT Height 172.7 cm (5' 8 ) 07/11/2023 1:48 PM TERADATA DEVELOPER Body Mass Index 38.23 07/11/2023 1:48 PM TERADATA DEVELOPER Plan of Treatment Upcoming Encounters Date Type Department Care Team (Late st Contact Info) Description 12/03/2024 4:30 PM CDT Telephone Check Up [facility] Oncology and Hematology - [place] [address] [place] [address] Laith Cavazos MD [address] [place] [address] Health Maintenance Due Date Last Done Comments Pre-Diabetes and Diabetes Screening 1980 DTAP/TDAP/TD VACCINES (1 - Tdap) 1999 HEPATITIS B VACCINES (1 of 3 - 19+ 3-dose series) 1999 Preventative Visit-Managed Medicaid 1999 INFLUENZA VACCINE (#1) 2024 HPV VACCINES Aged Out No longer eligi ble based on patient's age to complete this topic Procedures Procedure Name Priority Date/Time Associated Diagnosis Comments COMPREHENSIVE METABOLIC PANEL Routine 11/07/2024 11:59 AM CDT from Last 3 Months Results * COMPREHENSIVE METABOLIC PANEL (11/07/2024 11:59 AM CDT) Blood us Laith Cavazos MD CHEMISTRY ORDERABLES Final Resu lt from Last 3 Months Insurance [facility] MEDICAID Care Teams Search Manager Relationship Specialty Start Date End Date Darwin Mata MD [address] [place] [phone] PCP - General Family Practice 07/11/23
--- OUTSIDE RECORDS SUMMARY | 2024-11-14 11:33 | XMS_ITS | Encounter Summary ---
Author Organization [facility] Address [address] [place] [address] Care Team Providers Care Medical Reviewer Name Role Phone Darwin Mata MD Primary Care Provider [phone] Encounter Details Date Type Department Care Team ([facility] Contact Info) Description 11/10/2024 Orders Only [facility] Oncology and Hematology [place] [address] [place] [address] Laith Cavazos MD [facility] [employer] [address] [place] [address] Social History Tobacco Use Types Packs/Day [...] 12/03/2024 4:30 PM CDT Telephone Check Up [facility] Oncology and Hematology [place] [address] [place] [address] Laith Cavazos MD [facility] [employer] [address] [place] [address] documented as of this encounter Procedures Procedure Name Priority Date/Time Associated Diagnosis Comments COMPREHENSIVE METABOLIC PANEL Routine 11/07/2024 11:59 AM CDT documented in this encounter Results * COMPREHENSIVE METABOLIC PANEL (11/07/2024 11:59 AM CDT) Blood Laith Cavazos MD CHEMISTRY ORDERABLES Final Resu lt documented in this encounter Visit Diagnoses Not on filedocumented in this encounter Care Teams Medical Reviewer Relationship Specialty Start Date End Date Darwin Mata MD [address] [place] [phone] PCP - General Family Practice 07/11/23 documented as of this encounter
--- OUTSIDE RECORDS SUMMARY | 2024-11-14 11:33 | XMS_ITS | Referral Summary ---
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
--- OUTSIDE RECORDS SUMMARY | 2024-11-14 11:33 | XMS_ITS | CONTINUITY OF CARE DOCUMENT ---
Author Name carolandie carolandie Address Unknown Organization [facility] Address [address] [place] [address] [address] [place] [address] Phone [phone] Care Team Providers Care Garage Manager Name Role Phone Mary Keene MD Unavailable ROBERT ROJAS MD Unavailable [phone] ROBERT ROJAS MD Unavailable [phone] PROBLEMS Condition Status Date Provider Notes HTN essential active Mary Keene MD Hx of Hodgkin's lymphoma active Mary mccain MD Abnormal EKG active Mary Keene MD Cardiology examination active Mary bird MD ENCOUNTERS Date Type Provider Location Encounter Diag nosis - In-person encounter Office Visit Mary Keene MD [place] [facility] Cardiology examination - In-person encounter Office Visit Mary Keene MD [place] [facility] - In-person encounter Office Visit Mary Keene MD [place] [facility] - In-person encounter Office Visit Mary Keene MD [facility] Office - In-person encounter Office Visit Mary Keene MD [place] [facility] HTN essentialHx of Hodgkin's lymphomaAbnormal EKG VITAL SIGNS Date Observation Value Provider Body Mass Index (Ratio) 38.31 kg/m2 Mayco Keene MD blood pressure, diastolic 82 mm[Hg] Jad carcamo Levy blood pressure, systolic 132 mm[Hg] Waleska rodriguez Levy oxygen saturation, oximetry 99 % [facility] blood pressure, cuff size regular Jad carcamo Levy pulse rate 66 /min [facility] Levy weight E&M 252.0 [lb_av] [facility] height E&M 68 [in_i] [facility] Levy Body Mass Index (Ratio) 36.49 [...] MD drug use no Adilene Ventimig michelle BRICK AND TILE MAKING MACHINE OPERATOR alcohol use no Adilene Ventimig michelle BRICK AND TILE MAKING MACHINE OPERATOR smoking status Never smoker Adilene Ventim iglia BRICK AND TILE MAKING MACHINE OPERATOR smoking status Never smoker Marilin Justice social [...] Policy type / Coverage type [facility] constitution party ID [place] MEDICAID (2) Medicaid [id number] ADVANCE DIRECTIVES Name Date DISCUSSED - NO DECISION MADE TREATMENT PLAN Date Name Performer [id number],C,EKG today in SR Mary Keene MD [id number],C,B P today 150/84. He has been monitoring at home and says it is lower when he does not take his amlodipine and lisinopril. States he misses occasional doses. Advised to take medications consistently and monitor BP everyday. His updated medication list for this problem includes: Lisinopril 10 Mg Tablet (Lisinopril) Amlodipine 10 Mg Tablet (Amlodipine) Mary Keene MD [id number],S, H is updated medication list for this problem includes: Lisinopril 10 Mg Tablet (Lisinopril) Amlodipine 10 Mg Tablet (Amlodipine) Adilene Blanchard [facility] [id number],C,B lood pressure 141/102 today D BP has been elevated each visit p atient admits to medication non-compliance we discussed risk of not taking meds as directed which include but are not limited to stroke, [place] and renal failure. Patient voiced understanding W ill take meds as preescribed and monitor BP at home. Will return in 3 mos or sooner if needed. H is updated medication list for this problem includes: Lisinopril 10 Mg Tablet (Lisinopril) Amlodipine 10 Mg Tablet (Amlodipine) Adilene Blanchard [facility] [id number],C, E KG today shows sinus rhythm with nonspecific ST-T changes and possible slurring of the R-wave. He would certainly benefit from an echo. Mary Keene MD [id number],C, B P elevated today. Continues on amlodipine [...] Amlodipine 10 Mg Tablet (Amlodipine) Adilene Blanchard [facility] Cardiology:Blood pre ssure 141/102 today D BP has been elevated each visit p atient admits to medication non-compliance we discussed risk of not taking meds as directed which include but are not limited to stroke, [place] and renal failure. Patient voiced understanding W ill take meds as preescribed and monitor BP at home. Will return in 3 mos or sooner if needed. H is updated medication list for this problem includes: Lisinopril 10 Mg Tablet (Lisinopril) Amlodipine 10 Mg Tablet (Amlodipine) Adilenealvarado Haganmassimoemma [facility] Cardiology: E KG today shows sinus rhythm [...]
== END 2024-11-14 11:29 | disposition home or self-care (01) ==
LOC: ANHLAB 11:29
PROVIDERS: Visit Provider Internal Medicine Hematology & Oncology
DX: C81.90 Hodgkin lymphoma, unspecified, unspecified site (principal)
CPT/HCPCS: 88184

== ENCOUNTER 2025-01-08 08:03 | Outpatient (CLI) | payer OTHER, SELFPAY ==
--- NOTE | ~2025-01-08 | CT_ITS ---
Clinical Indication: Hodgkin's lymphoma CT Scan of the Chest, Abdomen, and Pelvis with Contrast: Technique: Contiguous sections were acquired throughout the chest, abdomen, and pelvis after intraven ous administration of 100 cc of Omnipaque 350. Dose reduction technique was used on this scan by uti elmering automated exposure control and iterative reconstruction technique. The dose-length product (DL P) was 1380.30 mGy-cm. Findings: There is no evidence of any significant mediastinal, hilar or axillary lymphadenopathy. The mediastin al soft tissues appear normal. There is no evidence of pleural or pericardial effusion. The lungs are clear. No pulmonary nodules or infiltrates are noted. The liver, spleen, pancreas, gallbladder, adrenals and kidneys are within normal limits. There are at herosclerotic calcifications of the aorta. No lymphadenopathy. No bowel obstruction or bowel wall thickening. There is no evidence to suggest acute appendicitis. Urinary bladder is unremarkable. No pelvic mass seen. No ascites. Impression: No significant abnormalities seen. Reviewed, dictated and finalized at [facility]. Impression: No significant abnormalities seen.
--- OUTSIDE RECORDS SUMMARY | 2025-01-08 08:10 | XMS_ITS | Clinical Summary ---
Author Organization [facility] [address] Address [address] [place] [address] Care Team Providers Care Field Artillery Senior Sergeant Name Role Phone Darwin Mata MD Primary Care Provider [phone] Allergies Active Allergy Reactions Criticality Noted Date Comments Morphine Hypotension High 08/21/2021 Medications amLODIPine (NORVASC) 10 mg tablet Take 10 mg by mouth daily. 02/15/2021 Active lisinopriL (PRINIVIL) 10 mg tablet Take 10 mg by mouth daily. 02/15/2021 Active Active Problems No known active problems Encounters Date Type Department Care Team Description 12/23/2024 Telephone [facility] On[facility] H[facility]ology [facility] [address] [place] [address] Scan 12/03/2024 4:30 PM CDT Telephone Check Up [facility] [address] [place] [address] Laith Cavazos MD Hodgkin lymphoma, unspecified Hodgkin lymphoma type, unspecified body region (CMS/HCC) (Primary Dx) 11/17/2024 Orders Only [facility] [address] [facility] [place] [address] Laith Cavazos MD 11/13/2024 Abstract [facility] H[facility] [address] [place] [id number] Laith Cavazos MD 11/12/2024 2:15 PM CDT Office Visit [facility] On[facility] Hematology - [place] [address] [place] [address] Laith Cavazos MD Hodgkin lymphoma, unspecified Hodgkin lymphoma type, unspecified body region (CMS/HCC) (Primary Dx) 11/10/2024 Orders Only [facility] On[facility] Hematology [facility] [address] [place] [address] Laith Cavazos MD from Last 3 Months Family History Medical [...] 1:52 PM CDT Height 172.7 cm (5' 8) 07/11/2023 1:48 PM DIGITAL COMPUTER OPERATOR Body Mass Index 38.23 07/11/2023 1:48 PM DIGITAL COMPUTER OPERATOR Plan of Treatment Upcoming Encounters Date Type Department Care Team (Late st Contact Info) Description 02/13/2025 12:15 PM CDT Office Visit [facility] Hematology - [place] [address] [place] [address] Laith Cavazos MD [address] [facility] [address] [place] [address] Health Maintenance Due Date Last Done Comments Pre-Diabetes and Diabetes Screening 1980 DTAP/TDAP/TD VACCINES (1 - Tdap) 1999 HEPATITIS B VACCINES (1 of 3 - 19+ 3-dose series) 1999 INFLUENZA VACCINE (#1) 2024 HPV VACCINES Aged Out No longer eligi ble based on patient's age to complete this topic Procedures Procedure Name Priority Date/Time Associated Diagnosis Comments FLOW CYTOMETRY REPORT Routine 11/14/2024 1:52 PM CDT COMPREHENSIVE METABOLIC PANEL Routine 11/07/2024 11:59 AM CDT from Last 3 Months Results * FLOW CYTOMETRY REPORT (11/14/2024 1:52 PM CDT) Laith Cavazos MD PATHOLOGY/CYTOLOGY ORDERABLES F inal Result * COMPREHENSIVE METABOLIC PANEL (11/07/2024 11:59 AM CDT) Blood Laith Cavazos MD CHEMISTRY ORDERABLES Final Resu lt from Last 3 Months Insurance [facility] MEDICA[employer] Care Teams Field Artillery Senior Sergeant Relationship Specialty Start Date End Date Darwin Mata MD [address] [place] [id number] PCP - General Family Practice 07/11/23
--- OUTSIDE RECORDS SUMMARY | 2025-01-08 08:10 | XMS_ITS | Clinical Summary ---
Author Organization [facility] Address [address] [place] [address] Care Team Providers Care Managing Attorney Name Role Phone Vanessa Reyes MD Primary Care Provider [phone] Allergies Active Allergy Reactions Criticality Noted Date [...] MYRINGOTOMY W/ TUBES Myringotomy - (Added by TW Conv) SINUS SURGERY Sinus Surgery - (Added by TW Conv) Medical History Medical History Date Comments History of Hodgkin's lymphoma Hi story of Hodgkin's lymphoma - (Added by TW Conv) Personal history of other di seases of the circulatory system History of hypertension - (A dded by TW Elizabeth) Hypertension Social History Tobacco Use Types Packs/Day [...] on file 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 Gender Identity Not on file Sexual [...] A M CDT Height 172.7 cm (5' 8) 12/22/2023 11:36 AM CDT Body Mass Index [...] Vaccine (1 of 2) 1999 Influenza Vaccine (Season Ended) 2025 05/21/20 15 DTaP/Tdap/Td Vaccine (2 - Td or Tdap) 05/21/2025 05/21/2015 HPV Vaccines Aged Out No longer eligi ble based on patient's age to complete this topic Insurance [facility] PLAN [facility] Advance Directives For more information, please contact: [phone] * Full Code (Latest Code Status on File) Date Activated Date Inactivated Comments 08/21/2021 12:43 AM 08/22/2021 6:25 PM * Full Code Date Activated Date Inactivated Comments 02/13/2021 5:57 AM 02/14/2021 5:34 PM Care Teams Managing Attorney Relationship Specialty Start Date End Date Vanessa Reyes MD [address] [place] [address] PCP - General Internal Medicine 03/13/19
--- OUTSIDE RECORDS SUMMARY | 2025-01-08 08:10 | XMS_ITS | Referral Summary ---
Author Organization 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 Gender Identity Not on file Sexual Orientation [...] Plan of Treatment Not on file Insurance [facility] Advance Directives For more information, please contact: [phone] * Full Code (Latest Code Status on File) Date Activated Date Inactivated Comments 08/21/2021 12:43 AM 08/22/2021 6:25 PM * Full Code Date Activated Date Inactivated Comments 02/13/2021 5:57 AM 02/14/2021 5:34 PM Care Teams It Support Consultant Relationship Specialty Start Date End Date Vanessa Reyes MD [address] [place] [id number] PCP - General Internal Medicine 03/13/19
[2025-01-08 08:22] LABS: Estimated Glomerular Filt Rate > 60
== END 2025-01-08 08:04 | disposition home or self-care (01) ==
LOC: ANHIMG 08:07
PROVIDERS: PCP Emergency Medicine; Visit Provider Internal Medicine Hematology & Oncology
DX: C81.90 Hodgkin lymphoma, unspecified, unspecified site (principal)
CPT/HCPCS: 71260; 74177; Q9967

== ENCOUNTER 2025-05-08 14:09 | Outpatient (CLI) | payer OTHER, SELFPAY ==
[2025-05-08 14:40] LABS: Hematocrit 44.5 % (42.0-52.0); Hemoglobin 14.6 g/dL (14.0-18.0); Mean Corpuscular HGB Conc 32.8 g/dl (32-36); Mean Corpuscular Hemoglobin 28.9 pg (26-34); Mean Corpuscular Volume 88.1 fl (80-100); Platelet Count Result 262 k/mm3 (150-375); Red Blood Count 5.05 M/mm3 (4.6-6.20); White Blood Count 4.0 K/mm3 (4.5-10.0)
[2025-05-08 14:51] LABS: Alanine Aminotransferase 69 U/L (6-50); Albumin Level 4.3 g/dL (3.5-5.1); Alkaline Phosphatase 82 U/L (38-126); Anion Gap 8 mmol/L (4-12); Aspartate Amino Transferase 50 U/L (17-59); Bilirubin,Total 0.5 mg/dL (0.2-1.3); Blood Urea Nitrogen 14 mg/dL (9-20); Calcium 9.4 mg/dL (8.4-10.2); Carbon Dioxide 27 mmol/L (22-30); Chloride 104 mmol/L (98-107); Cholesterol 182 mg/dL (0-200); Estimated Glomerular Filt Rate > 60; Glucose 87 mg/dL (65-110); HDL Direct 40 mg/dL; Potassium 3.9 mmol/L (3.4-5.0); Sodium 139 mmol/L (137-145); Total Protein 8.5 g/dL (6.3-8.2); Triglycerides 68 mg/dL (<150)
[2025-05-08 14:55] LABS: Hemoglobin A1C 5.4 % (<5.7)
[2025-05-08 15:00] LABS: Add Urine Microscopic? YES; Appearance Urine Clear (Clear); Glucose Urine UA Negative (Negative); Leukocyte Esterase Ur Negative LEU/UL (Negative); Nitrate Urine Negative (Negative); Non Pathogenic Casts 0-2; Specific Grav Ur 1.026 (1.001-1.035)
[2025-05-08 15:08] LABS: Free T4 Free Thyroxine 0.83 ng/dL (0.78-2.19)
[2025-05-08 15:27] LABS: Prostate Specific Antigen 0.5 ng/mL (< OR = 4.0); Thyroid Stimulating Hormone 0.972 uIU/mL (0.465-4.680)
[2025-05-08 16:18] LABS: MALB Creatinine Ratio 15.4 mg/g (0-30)
== END 2025-05-08 14:10 | disposition home or self-care (01) ==
LOC: ANHLAB 14:13
PROVIDERS: PCP Emergency Medicine; Visit Provider Emergency Medicine
DX: Z00.00 Encounter for general adult medical examination without abnormal findings (principal); E78.5 Hyperlipidemia, unspecified; I10 Essential (primary) hypertension
CPT/HCPCS: 36415; 80053; 80061; 81001; 82043; 82306; 83036; 84153; 84439; 84443; 85027